=== PATIENT | male | born 1945 | race Caucasian/White ===

== ENCOUNTER → 2018-05-05 | Outpatient (CLI) | payer OTHER | END | disposition home or self-care (01) | LOC: SHCH 10:23 | PROVIDERS: ATTEND Internal Medicine Cardiovascular Disease | DX: I65.23 Occlusion and stenosis of bilateral carotid arteries (principal); I25.10 Atherosclerotic heart disease of native coronary artery without angina pectoris | CPT/HCPCS: 93880 ==

== ENCOUNTER → 2019-02-09 | Outpatient (CLI) | payer OTHER | END | disposition home or self-care (01) | LOC: SHCH 10:00 | PROVIDERS: ATTEND Internal Medicine Cardiovascular Disease | DX: I11.9 Hypertensive heart disease without heart failure (principal); I06.8 Other rheumatic aortic valve diseases; I25.10 Atherosclerotic heart disease of native coronary artery without angina pectoris | CPT/HCPCS: 93306 ==

== ENCOUNTER 2020-01-26 05:43 | Day surgery (SDC) | payer OTHER ==
[2020-01-22 10:02] VITALS: BP 150/81
[2020-01-22 13:35] LABS: BASOPHILS % (AUTO) 0.2 % (0.0-5.0); EOSINOPHILS % (AUTO) 0.5 % (0.0-8.0); HEMATOCRIT 37.8 % (42-54); LYMPHOCYTES % (AUTO) 24.3 % (21.0-51.0); MEAN CORPUSCULAR HEMOGLOBIN 31.9 pg (27.0-33.0); MEAN CORPUSCULAR HGB CONC 32.5 g/dL (32.0-36.0); MEAN CORPUSCULAR VOLUME 97.9 fL (79-99); MONOCYTES % (AUTO) 11.8 % (3.0-13.0); NEUTROPHILS % (AUTO) 62.9 % (40.0-77.0); PLATELET COUNT (AUTO) 154 K/uL (130-400); RED BLOOD CELL COUNT(AUTO) 3.86 MIL/uL (4.50-6.20); RED CELL DISTRIBUTION WIDTH 13.4 % (11.0-15.5); WHITE BLOOD COUNT (AUTO) 5.8 K/uL (4.8-10.8)
[2020-01-22 13:47] LABS: CREATININE 1.1 mg/dL (0.5-1.5); POTASSIUM 3.9 mmol/L (3.5-5.1)
[2020-01-22 14:01] LABS: INR 1.31 (0.85-1.15); PARTIAL THROMBOPLASTIN TIME 30.3 SEC (26.3-35.5)
--- NOTE | 2020-01-25 13:45 | NUR ---
RE: ABNORMAL LABS INFORMED JONATHAN CONTRERAS REGARDING PT 14.0, INR 1.31 AND PTT 30.3, HGB 12.3, HCT 37.8. INFORMED HIM THAT PATIENT STOPPED TAKING HIS COUMADIN ON 01/21/20. NO NEW ORDERS RECEIVED.
[~2020-01-26] VITALS: Ht 186.7 cm; Wt 114.1 kg
[2020-01-26] VITALS (23 sets, daily range): BP systolic 121–154; BP diastolic 50–92
[~2020-01-26 05:43] MED LIST: AEC81 PO; AMIO100T4 PO; ATOR20TA65 PO; METO25TA6 PO; VALP250C3 PO; WARF-57 PO
[2020-01-26] MEDS ORDERED: SODIUM CHLORIDE 0.9% 1000ML 1,000 ML IV ONE (06:11)
--- NOTE | 2020-01-26 06:15 | NUR ---
PRE OP PT ARRIVED VIA W/C IN NO DISTRESS. PT HERE FOR DUAL PPM CHANGE OUT. PT ORIENTED TO ROOM AND CALL LIGHT. PT REPORTED RECENT SUICIDAL THOUGHTS, BUT THAT HE IS NOT GOING TO TAKE HIS LIFE AWAY JENNI HE HAS SO MUCH TO LIVE FOR. WILL REPORT TO PROPER STAFF AND FOLLOW UP.
--- NOTE | 2020-01-26 07:05 | NUR ---
report informed supervisor melt house wilmer reyez rn, marya montano pa for russell holt rn cardiac cath lab manager and anesthesia carlos mc of recent suicidal ideations. pt reported no thoughts at this time.
[2020-01-26] MEDS ORDERED: BUPIVACAINE/PF 0.25% 30ML VIAL IJ ONE (07:26)
[2020-01-26] MEDS ORDERED: CEFAZOLIN SODIUM 1 GM VIAL ONE ×2 (07:27→09:09)
[2020-01-26] MEDS ORDERED: LIDOCAINE HCL 1% MDV 50ML VIAL ONE (07:27)
--- NOTE | 2020-01-26 07:28 | NUR ---
UNATTENDED GROUND SENSOR SPECIALIST PT TAKEN TO UNATTENDED GROUND SENSOR SPECIALIST VIA BED IN NO DISTRESS
[2020-01-26] MEDS ORDERED: DEXAMETHASONE SOD PHOSPHATE 10MG/ML 1ML VIAL ONE (07:29)
[2020-01-26] MEDS ORDERED: SUCCINYLCHOLINE CHLORIDE 20 MG/ML 10 ML VIAL ONE (07:29)
[2020-01-26] MEDS ORDERED: LIDOCAINE PF 2% 5ML ABBOJECT ONE (07:29)
[2020-01-26] MEDS ORDERED: GLYCOPYRROLATE 1 MG/5 ML SYRINGE ONE (07:29)
[2020-01-26] MEDS ORDERED: PROPOFOL 10 MG/ML 20ML VIAL IV ONE (07:29)
[2020-01-26] MEDS ORDERED: ROCURONIUM 10MG/1ML SYR 10 MG/ML ML ONE (07:30)
[2020-01-26] MEDS ORDERED: MIDAZOLAM HCL 1 MG/ML 2ML VIAL ONE (07:30)
[2020-01-26] MEDS ORDERED: ONDANSETRON HCL 4 MG/2 ML VIAL ONE (07:30)
[2020-01-26] MEDS ORDERED: NEOSTIGMINE 5MG/5ML SYR IV ONE (07:30)
[2020-01-26] MEDS ORDERED: FENTANYL CITRATE PF 50 MCG/1 ML 5ML AMP IV ONE (07:31)
[2020-01-26] MEDS ORDERED: METHYLENE BLUE 5 MG/ML AMP ONE ×3 (07:46→09:02)
[2020-01-26] MEDS ORDERED: PHENYLEPHRINE HCL 10 MG/ML 1ML VIAL IV ONE (08:01)
[2020-01-26] MEDS ORDERED: OCTYL 2-CYANOACRYLATE 1 EACH TP ONE (08:25)
--- NOTE | 2020-01-26 10:01 | NUR ---
POST CATH RECEIVED PT AND REPORT FROM MARGY BAHENA RN FROM PACU. PT IN LOW FOWLERS. PT IN NO DISTRESS AT THIS TIME. PT HAS PRESSURE DRESSING TO LEFT CHEST WALL CLEAN AND DRY. APPLIED ICE PACK TO LEFT CHEST. PT GIVEN ID CARD. PT ALSO INSTRUCTED TO CALL FOR ASSISTANCE AND CALL LIGHT WITHIN REACH. WILL CONTINUE TO MONITOR PT.
--- NOTE | 2020-01-26 10:37 | NUR ---
[facility] CALLED DR CHAUDHARI TO VERIFY WHEN TO START WARFARIN. PT TO START TOMORROW
[2020-01-26] MEDS ORDERED: CEFAZOLIN SODIUM 1 GM VIAL IVP SCH (14:00)
--- NOTE | 2020-01-26 14:55 | NUR ---
DISCHARGE PT GIVEN D/C INSTRUCTIONS AND FRIEND TOLD ABOUT D/C PACKET IN CASE PT HAS QUESTIONS. FRIEND VOICED UNDERSTANDING. PT FREE FROM HEMATOMA OR ACTIVE BLEEDING. PT TAKEN OUT VIA W/C SRAVANTHI ANG CNA IN NO DISTRESS
== END 2020-01-26 14:55 | disposition home or self-care (01) ==
LOC: DAH 05:43
PROVIDERS: ATTEND Internal Medicine Cardiovascular Disease
DX: Z45.010 Encounter for checking and testing of cardiac pacemaker pulse generator [battery] (principal); I49.5 Sick sinus syndrome; Z20.828 Contact with and (suspected) exposure to other viral communicable diseases; I10 Essential (primary) hypertension; E11.9 Type 2 diabetes mellitus without complications; I25.10 Atherosclerotic heart disease of native coronary artery without angina pectoris; M19.90 Unspecified osteoarthritis, unspecified site; F17.210 Nicotine dependence, cigarettes, uncomplicated; Z90.89 Acquired absence of other organs; Z95.1 Presence of aortocoronary bypass graft; Z88.6 Allergy status to analgesic agent; Z98.890 Other specified postprocedural states; Z85.46 Personal history of malignant neoplasm of prostate; Z79.899 Other long term (current) drug therapy; Z86.2 Personal history of diseases of the blood and blood-forming organs and certain disorders involving the immune mechanism; Z79.01 Long term (current) use of anticoagulants
CPT/HCPCS: 33228; 36415; 80048; 85025; 85610; 85730; 93005; A4216; A4221; A4222; A4223 ×3; A4606; A4657; A4663; C1785; C9803; J0330; J0690 ×2; J1100; J2001; J2250; J2370; J2405; J2704; J2710; J3010; J3490 ×2; J7030 ×2; Q9968 ×3; U0003